=== PATIENT | male | born 1990 | race Caucasian/White ===

== ENCOUNTER 2019-04-23 20:29 | Emergency (ER) | payer BC, MEDICAID ==
[~2019-04-23] VITALS: Ht 175.3 cm; Wt 103.0 kg
[2019-04-23 21:12] VITALS: BP 136/75
[2019-04-23] MEDS ORDERED: HYDROCODONE/APAP 5/325MG 1 EACH TABLET ONE (21:48)
[2019-04-23] MEDS ORDERED: HYDROCODONE/APAP 5/325MG 1 EACH TABLET PO ONE (22:00)
== END 2019-04-23 22:22 | disposition home or self-care (01) ==
LOC: ER 20:30
DX: M25.562 Pain in left knee (principal); E11.9 Type 2 diabetes mellitus without complications; Z60.2 Problems related to living alone; W01.0XXA Fall on same level from slipping, tripping and stumbling without subsequent striking against object, initial encounter; Y93.01 Activity, walking, marching and hiking; Y92.89 Other specified places as the place of occurrence of the external cause; Y99.8 Other external cause status
CPT/HCPCS: 73564-TC